=== PATIENT | male | born 1985 | race Caucasian/White ===

== ENCOUNTER 2020-11-28 19:19 | Emergency (ER) | payer MEDICAID ==
[~2020-11-28] VITALS: Ht 170.2 cm; Wt 158.8 kg
[2020-11-28 19:36] VITALS: BP 143/80
[2020-11-28] MEDS ORDERED: FLUORESCEIN OPTH STRIP 1 MG OP ONE (20:10)
[2020-11-28] MEDS ORDERED: TETRACAINE HCL/PF 0.5% OPTH 4 ML BTL ONE (20:17)
[2020-11-28] MEDS ORDERED: TETRACAINE HCL/PF 0.5% OPTH 4 ML BTL OP ONE (20:20)
[2020-11-28] MEDS ORDERED: ERYT5OIN58 OP (20:29)
[2020-11-28 20:40] VITALS: BP 143/80
== END 2020-11-28 20:40 | disposition home or self-care (01) ==
LOC: MED 19:19
DX: S05.02XA Injury of conjunctiva and corneal abrasion without foreign body, left eye, initial encounter (principal); S00.252A Superficial foreign body of left eyelid and periocular area, initial encounter; X58.XXXA Exposure to other specified factors, initial encounter; Y93.89 Activity, other specified; Y92.89 Other specified places as the place of occurrence of the external cause; Y99.8 Other external cause status
CPT/HCPCS: 99283